=== PATIENT | female | born 1945 | race Caucasian/White ===

== ENCOUNTER 2019-02-02 05:37 | Day surgery (SDC) | payer OTHER ==
[~2019-02-02 05:37] MED LIST: CARAFATE1 GM PO; CLONAZEPAM1 MG PO; CORRECTOL5 MG PO; FENOFIBRATE160 MG PO; LISINOPRIL10 MG PO; NORVASC2.5 M1; [UNRECOGNIZED DRUG - OTHER] PO
[2019-02-02] MEDS ORDERED: PERCOCET 5-3251 EACH PO (08:06)
[2019-02-02] MEDS ORDERED: RECTICARE30 GM TOP (08:07)
== END 2019-02-02 11:55 | disposition home or self-care (01) ==
LOC: CIR.AMB 05:37
DX: K62.82 Dysplasia of anus (principal)